=== PATIENT | male | born 1940 | race Caucasian/White ===

== ENCOUNTER 2017-11-19 09:36 | Inpatient (IN) | payer OTHER ==
[2017-11-19] MEDS ORDERED: morphine CARPU-JECT 2 MG/1 ML DISP.SYRIN IVPUSH ONE (09:42)
[2017-11-19] MEDS ORDERED: SODIUM CHLORIDE 1,000 ML IV STA (09:42)
[2017-11-19] MEDS ORDERED: ONDANSETRON 4 MG/2 ML VIAL IVPB ONE (09:44)
--- NOTE | 2017-11-19 09:52 | PDOC ---
History of Present Illness - History of Present Illness Initial Comments: 11/19/17 10:14 The patient is a 77 year old male with a significant PMH of s/p appendectomy, lower extremity osteomyelitis s/p multiple resections, gout, HLD and BPH who was brought in to the emergency department by Dr. Griffin with constipation, nausea, and right sided abdominal pain that began overnight. The patient describes the right mid abdominal pain as constant and radiating to the lower back. The patient denies any urinary complaints. The patient states he had an appendectomy in childhood and denies any history of kidney stones. The patient denies chest pain, shortness of breath, headache and dizziness. Denies fever, chills, vomit, and diarrhea. Denies dysuria, frequency, urgency and hematuria. Allergies: Penicillins, Sulfa Past surgical history: appendectomy Social history: No reported alcohol, drug, or cigarette use. PCP: Dr. Griffin <Yane Corral - Last Filed: 11/19/17 10:15> - General History Source: Patient Exam Limitations: No Limitations <Leonides Hemphill - Last Filed: 11/19/17 13:30> - General Stated Complaint: ABDOMINAL PAIN Time Seen by Provider: 11/19/17 09:41 Past History <Yane Corral - Last Filed: 11/19/17 10:15> <Leonides Hemphill - Last Filed: 11/19/17 13:30> - Past Medical History Allergies/Adverse Reactions: Allergies Allergy/AdvReac Type Severity Reaction Status Date / Time doxycycline Allergy Verified 11/19/17 10:11 Penicillins Allergy Verified 11/19/17 09:55 Sulfa (Sulfonamide Allergy Verified 11/19/17 09:55 Antibiotics) Home Medications: Ambulatory Orders Allopurinol [Zyloprim -] 100 mg PO DAILY 11/19/17 Gabapentin [Neurontin] 300 mg PO HS 11/19/17 Rosuvastatin Calcium [Crestor] 10 mg PO HS 11/19/17 Tamsulosin HCl [Flomax -] 0.4 mg PO HS 11/19/17 Review of Systems - Review of Systems Able to Perform ROS?: Yes Comments:: 11/19/17 10:17 GENERAL/CONSTITUTIONAL: No fever or chills. No weakness. HEAD, EYES, EARS, NOSE AND THROAT: No change in vision. No ear pain or discharge. No sore throat. CARDIOVASCULAR: No chest pain or shortness of breath. RESPIRATORY: No cough, wheezing, or hemoptysis. GASTROINTESTINAL: (+) Nausea. (+) Constipation. No vomiting or diarrhea. GENITOURINARY: No dysuria, frequency, or change in urination. MUSCULOSKELETAL: No joint or muscle swelling or pain. No neck or back pain. SKIN: No rash NEUROLOGIC: No headache, vertigo, loss of consciousness, or change in strength/ sensation. ENDOCRINE: No increased thirst. No abnormal weight change. HEMATOLOGIC/LYMPHATIC: No anemia, easy bleeding, or history of blood clots. ALLERGIC/IMMUNOLOGIC: No hives or skin allergy. <Yane Corral - Last Filed: 11/19/17 10:15> *Physical Exam - Vital Signs Last Vital Signs Temp Pulse Resp BP Pulse Ox 99.0 F 65 18 147/80 98 11/19/17 09:55 11/19/17 09:55 11/19/17 09:55 11/19/17 09:55 11/19/17 09:55 - Physical Exam Comments: 11/19/17 10:18 GENERAL: Awake, alert, and fully oriented, in no acute distress HEAD: No signs of trauma EYES: PERRLA, EOMI, sclera anicteric, conjunctiva clear ENT: Auricles normal inspection, hearing grossly normal, nares patent, oropharynx clear without exudates. Moist mucosa NECK: Normal ROM, supple, no lymphadenopathy, JVD, or masses LUNGS: Breath sounds equal, clear to auscultation bilaterally. No wheezes, and no crackles HEART: Regular rate and rhythm, normal S1 and S2, no murmurs, rubs or gallops ABDOMEN: (+) Right mid abdomen tender to palpation. Soft, normoactive bowel sounds. No guarding, no rebound. No masses EXTREMITIES: Normal range of motion, no edema. No clubbing or cyanosis. No cords, erythema, or tenderness NEUROLOGICAL: Cranial nerves II through XII grossly intact. Normal speech, normal gait SKIN: Warm, Dry, normal turgor, no rashes or lesions noted. <Yane Corral - Last Filed: 11/19/17 10:15> Heart Score/ECG Review #1 ECG reviewed & interpreted by me at: 10:00 11/19/17 10:07 NSR 57, no std/[place], normal axis, normal intervals, QTC 393 msec <Leonides Hemphill - Last Filed: 11/19/17 13:30> ED Treatment Course - Medications Given in the ED: ED Medications Discontinued Medications Generic Name Dose Route Start Last Admin Trade Name Andre PRN Reason Stop Dose Admin Morphine Sulfate 2 mg 11/19/17 09:42 11/19/17 10:10 Morphine Injection - IVPUSH 11/19/17 09:43 2 mg ONCE ONE Administration Ondansetron HCl 4 mg 11/19/17 09:44 11/19/17 10:11 Zofran Injection IVPB 11/19/17 09:45 4 mg ONCE ONE Administration <Yane Corral - Last Filed: 11/19/17 10:15> - LABORATORY CBC & Chemistry Diagram: 11/19/17 10:00 11/19/17 10:20 - RADIOLOGY Radiology Studies Ordered: Category Date Time Status ABDOMEN & PELVIS CT W/O CONTR [CT] Stat CT Scan 11/19/17 09:43 Ordered CHEST PA & LAT [RAD] Stat Radiology 11/19/17 09:42 Ordered <Leonides Hemphill - Last Filed: 11/19/17 13:30> Medical Decision Making - Medical Decision Making 11/19/17 10:08 A portion of this note was written by my scribe, under my supervision. 77 year old M c/ hx of HLD, gout, s/p appendectomy, BPH, lower extremity osteomylitis s/p multiple surgeries p/w abdominal pain since yesterday. Pt was brought into ED by Dr. Izzy Griffin. Noted that the patient had developed R sided abdominal pain, constipation, and nausea/vomiting. Denies fevers, chills. Denies dysuria. Reported that the pain was constant and was worsening so came into ED. Differential includes colitis, diverticulitis, gastroenteritis, constipation, bowel obstruction, cystitis, pyelonephritis, biliary colic. Labs, UA, CT scan of abdomen and pelvis (pt preference for no IV contrast given hx of multiple drug allergies). Pain control, IVF, and reassess. 11/19/17 13:27 CBC, BMP 11/19/17 10:00 11/19/17 10:20 CMP Sodium 139 mmol/L (136-145) 11/19/17 10:20 Potassium 4.6 mmol/L (3.5-5.1) 11/19/17 10:20 Chloride 106 mmol/L (98-107) 11/19/17 10:20 Carbon Dioxide 22 mmol/L (21-32) 11/19/17 10:20 Anion Gap 11 (8-16) 11/19/17 10:20 BUN 25 mg/dL (7-18) H 11/19/17 10:20 Creatinine 1.7 mg/dL (0.7-1.3) H D 11/19/17 10:20 Creat Clearance w eGFR 39.18 (>60) 11/19/17 10:20 Random Glucose 123 mg/dL (74-106) H 11/19/17 10:20 Calcium 9.3 mg/dL (8.5-10.1) 11/19/17 10:20 Phosphorus 3.4 mg/dL (2.5-4.9) 11/19/17 10:20 Magnesium 2.2 mg/dL (1.8-2.4) 11/19/17 10:20 Total Bilirubin 0.6 mg/dL (0.2-1.0) D 11/19/17 10:20 AST 15 U/L (15-37) 11/19/17 10:20 ALT 37 U/L (12-78) D 11/19/17 10:20 Alkaline Phosphatase 69 U/L (45-117) D 11/19/17 10:20 Creatine Kinase 80 IU/L (39-308) 11/19/17 10:20 Troponin I < 0.02 ng/ml (0.00-0.05) 11/19/17 10:20 Total Protein 6.9 g/dl (6.4-8.2) 11/19/17 10:20 Albumin 3.9 g/dl (3.4-5.0) 11/19/17 10:20 Lipase 86 U/L (73-393) 11/19/17 10:20 Urine Test Results Urine Color Straw 11/19/17 11:51 Urine Appearance Clear 11/19/17 11:51 Urine pH 5.0 (5.0-8.0) 11/19/17 11:51 Ur Specific [place] 1.010 (1.001-1.035) 11/19/17 11:51 Urine Protein Negative (NEGATIVE) 11/19/17 11:51 Urine Glucose (UA) Negative (NEGATIVE) 11/19/17 11:51 Urine Ketones Negative (NEGATIVE) 11/19/17 11:51 Urine Blood 2+ (NEGATIVE) H 11/19/17 11:51 Urine Nitrite Negative (NEGATIVE) 11/19/17 11:51 Urine Bilirubin Negative (NEGATIVE) 11/19/17 11:51 Ur Leukocyte Esterase Negative (NEGATIVE) 11/19/17 11:51 Ur Epithelial Cells Rare /HPF (FEW) 11/19/17 11:51 Urine Mucus Rare 11/19/17 11:51 CT scan shows 5 mm kidney stone R side. However, Cr is elevated. Will admit patient. Case discussed with Dr. Izzy Griffin who accepts patient to med/surg admission. Requests Dr. Chapman for consultation (uro) Case discussed in detail with admitting physician including history, physical exam and ancillary studies. Admitting physician has assumed care for the patient, will follow all pending diagnostics and will complete the evaluation and treatment. 11/19/17 13:[address] Hay. He will see patient. Requests IV antibiotics, flomax. <Leonides Hemphill - Last Filed: 11/19/17 13:30> *DC/Admit/Observation/Transfer - Attestations Scribe Attestion: 11/19/17 10:18 Documentation prepared by Yane Corral, acting as medical malpractice paralegal for Leonides Hemphill MD. <Yane Corral - Last Filed: 11/19/17 10:15> - Discharge Dispostion Admit: Yes <Leonides Hemphill - Last Filed: 11/19/17 13:30> Diagnosis at time of Disposition: Kidney stone, Elevated serum creatinine - Discharge Dispostion Condition at time of disposition: Stable - Referrals Referrals: Teofilo Griffin MD [Primary Care Provider] -
[2017-11-19] MEDS ORDERED: MORPHINE SULFATE 10 MG/1 ML *VIAL ONE (10:01)
[2017-11-19] MEDS ORDERED: ONDANSETRON 4 MG/2 ML VIAL ONE (10:02)
[2017-11-19 10:41] LABS: BASO % 0.2 % (0-2.0); EOS % 0.2 % (0-4.5); HEMATOCRIT 43.6 % (35.4-49); HEMOGLOBIN 14.2 GM/dL (11.7-16.9); LYMPH % 12.8 % (8-40); MCH 31.7 pg (25.7-33.7); MCHC 32.7 g/dl (32.0-35.9); MEAN PLT VOLUME 9.5 fl (7.5-11.1); MONO % 6.5 % (3.8-10.2); NEUT % 80.3 % (42.8-82.8); PLATELET COUNT 102 K/MM3 (134-434); RBC 4.49 M/mm3 (4.00-5.60); RDW 14.8 % (11.9-15.9); WHITE BLOOD COUNT 8.3 K/mm3 (4.0-10.0)
[2017-11-19 11:05] LABS: ALBUMIN 3.9 g/dl (3.4-5.0); ANION GAP 11 (8-16); BILIRUBIN,TOTAL 0.6 mg/dL (0.2-1.0); BLOOD UREA NITROGEN 25 mg/dL (7-18); CALCIUM 9.3 mg/dL (8.5-10.1); CHLORIDE 106 mmol/L (98-107); CO2 22 mmol/L (21-32); CREATININE 1.7 mg/dL (0.7-1.3); GLUCOSE,RANDOM 123 mg/dL (74-106); LIPASE 86 U/L (73-393); MAGNESIUM 2.2 mg/dL (1.8-2.4); PHOSPHOROUS 3.4 mg/dL (2.5-4.9); POTASSIUM 4.6 mmol/L (3.5-5.1); SGOT/AST 15 U/L (15-37); SGPT/ALT 37 U/L (12-78); SODIUM 139 mmol/L (136-145); TOT PROT 6.9 g/dl (6.4-8.2)
[2017-11-19 11:07] LABS: ALK PHOS 69 U/L (45-117)
[2017-11-19 12:26] LABS: URINE APPEARANCE CLEAR; URINE BILIRUBIN NEGATIVE (NEGATIVE); URINE BLOOD 2+ (NEGATIVE); URINE COLOR STRAW; URINE GLUCOSE (UA) NEGATIVE (NEGATIVE); URINE KETONE NEGATIVE (NEGATIVE); URINE LEUK ESTERASE NEGATIVE (NEGATIVE); URINE NITRITE NEGATIVE (NEGATIVE); URINE PROTEIN NEGATIVE (NEGATIVE); URINE UROBILINOGEN NEGATIVE mg/dL (0.2-1.0)
[2017-11-19 12:56] LABS: EPI CELLS RARE /HPF (FEW); URINE MUCUS RARE
[2017-11-19] MEDS ORDERED: TAMSULOSIN HCL 0.4 MG CAP.ER.24H (FP) PO ONE (13:27)
[2017-11-19] MEDS ORDERED: SODIUM CHLORIDE 1,000 ML IV SCH (13:30)
[2017-11-19] MEDS ORDERED: TAMSULOSIN HCL 0.4 MG CAP.ER.24H (FP) ONE (13:30)
[2017-11-19] MEDS ORDERED: ONDANSETRON 4 MG/2 ML VIAL IVPB PRN (13:47)
[2017-11-19] MEDS ORDERED: morphine CARPU-JECT 2 MG/1 ML DISP.SYRIN IVPB PRN (13:47)
--- NOTE | 2017-11-19 13:56 | HP ---
Admitting History and Physical - Primary Care Physician PCP: Izzy Griffin S - Admission Chief Complaint: R abdominal pain History of Present Illness: The patient is a 77 year old male with a significant PMH of s/p appendectomy, L lower extremity osteomyelitis s/p multiple resections in childhood, gout, HLD and BPH who was brought in to the emergency department with constipation, nausea, and right sided abdominal pain that began overnight. The patient describes the right mid abdominal pain as constant and radiating to the lower back. The patient denies any urinary complaints. The patient states he had an appendectomy in childhood and denies any history of kidney stones. History Source: Patient Limitations to Obtaining History: No Limitations - Past Medical History Cardiovascular: Yes: Hyperlipdemia Renal/: Yes: BPH Musculoskeletal: Yes: Chronic low back pain, Osteoarthritis - Smoking History Smoking history: Never smoked Have you smoked in the past 12 months: No - Alcohol/Substance Use Hx Alcohol Use: No History of Substance Use: reports: None - Social History Usual Living Arrangement: Yes: With Spouse ADL: Independent History of Recent Travel: No Home Medications - Allergies Allergies/Adverse Reactions: Allergies Allergy/AdvReac Type Severity Reaction Status Date / Time doxycycline Allergy Verified 11/19/17 10:11 Penicillins Allergy Verified 11/19/17 09:55 Sulfa (Sulfonamide Allergy Verified 11/19/17 09:55 Antibiotics) - Home Medications Home Medications: Ambulatory Orders Allopurinol [Zyloprim -] 100 mg PO DAILY 11/19/17 Gabapentin [Neurontin] 300 mg PO HS 11/19/17 Rosuvastatin Calcium [Crestor] 10 mg PO HS 11/19/17 Tamsulosin HCl [Flomax -] 0.4 mg PO HS 11/19/17 Acetaminophen [Tylenol .Regular Strength -] 650 mg PO Q6H PRN tablet 11/20/17 levoFLOXacin [Levaquin -] 250 mg PO DAILY #14 tablet 11/20/17 Family Disease History - Family Disease History Family History: Unremarkable Review of Systems - Review of Systems Constitutional: denies: Chills, Fever, Lethargy Eyes: denies: Blurred Vision, Double Vision HENT: denies: Ear Pain, Epistaxis Neck: denies: Stiffness, Tenderness Cardiovascular: denies: Chest Pain, Palpitations, Shortness of Breath Respiratory: denies: Cough, SOB Gastrointestinal: reports: Abdominal Pain, Bloating, Constipation, Nausea. denies: Diarrhea, Rectal Bleeding, Vomiting, Vomiting Blood Genitourinary: reports: Dysuria, Flank Pain, Frequency. denies: Hematuria, Incontinence Musculoskeletal: reports: Back Pain (chronic). denies: Joint Swelling Integumentary: denies: Eczema, Wound Neurological: denies: Change in LOC, Confusion, Dizziness, Headache, Pre- Existing Deficit, Seizure, Syncope, Unsteady Gait Endocrine: denies: Excessive Sweating, Flushing Hematology/Lymphatic: denies: Easily Bruised, Excessive Bleeding Psychiatric: denies: Altered Sleep Pattern, Anxiety, Depression Physical Examination Vital Signs: Vital Signs Temperature 99.0 F 11/19/17 09:55 Pulse Rate 65 11/19/17 09:55 Respiratory Rate 18 11/19/17 09:55 Blood Pressure 147/80 11/19/17 09:55 O2 Sat by Pulse Oximetry (%) 98 11/19/17 09:55 Constitutional: Yes: No Distress, Calm Eyes: Yes: Conjunctiva Clear HENT: Yes: Atraumatic Neck: Yes: Supple Cardiovascular: Yes: Regular Rate and Rhythm Respiratory: Yes: CTA Bilaterally Gastrointestinal: Yes: Soft. No: Distention, Tenderness Renal/: No: CVA Tenderness - Left, CVA Tenderness - Right, Hematuria Musculoskeletal: Yes: Other (LLE shorter). No: Joint Stiffness, Joint Swelling Extremities: No: Calf Tenderness, Cold, Cool, Cyanosis Edema: No Peripheral Pulses WNL: Yes Integumentary: No: Rash, Venous Stasis Changes Neurological: Yes: WNL, Alert, Oriented ...Motor Strength: WNL Psychiatric: Yes: WNL, Alert, Oriented. No: Agitated, Suicidal Ideation Labs: CBC, BMP 11/19/17 10:00 11/19/17 10:20 Imaging - Results Chest X-ray: Report Reviewed Cat Scan: Report Reviewed Other: Report Reviewed Assessment/Plan The patient is a 77 year old male with a significant PMH of s/p appendectomy, lower extremity osteomyelitis s/p multiple resections, gout, HLD and BPH who was brought in to the emergency department with constipation, nausea, and right sided abdominal pain that began overnight. CT scan c/w R UVJ 5 mm stone and mild R sided hydronephrosis and ARF (creat 1.7 from NL before) d/w admit IVF IV ATB f/u in am if does not pass stone might need cystoscopy d/w pt and staff
[2017-11-19] MEDS: SODIUM CHLORIDE 1,000 ML IV SCH (14:12)
--- NOTE | 2017-11-19 15:41 | CON.GU ---
Consult Consult Specialty:: Referred by:: Elias Reason for Consultation:: ureteral stone - History of Present Illness Chief Complaint: ureteral stone History of Present Illness: 77 year old male with his first kidney stone. He has a 5mm right UVJ stone with mild hydro. No fevers. He is feeling better since arriving to the ER. - History Source History Provided By: Patient Limitations to Obtaining History: No Limitations - Past Medical History Renal/: No: Renal Failure, Renal Inusuff, BPH, Cancer, Hematuria, Hemodialysis , Neurogenic Bladder, Renal Calculi, UTI, Other - Alcohol/Substance Use Hx Alcohol Use: No - Smoking History Smoking history: Never smoked Have you smoked in the past 12 months: No Home Medications - Allergies Allergies/Adverse Reactions: Allergies Allergy/AdvReac Type Severity Reaction Status Date / Time doxycycline Allergy Verified 11/19/17 10:11 Penicillins Allergy Verified 11/19/17 09:55 Sulfa (Sulfonamide Allergy Verified 11/19/17 09:55 Antibiotics) - Home Medications Home Medications: Ambulatory Orders Allopurinol [Zyloprim -] 100 mg PO DAILY 11/19/17 Gabapentin [Neurontin] 300 mg PO HS 11/19/17 Rosuvastatin Calcium [Crestor] 10 mg PO HS 11/19/17 Tamsulosin HCl [Flomax -] 0.4 mg PO HS 11/19/17 Review of Systems - Review of Systems Constitutional: denies: Fever Genitourinary: reports: Flank Pain, Frequency, Pain Physical Exam- Vital Signs: Vital Signs Temperature 97.9 F 11/19/17 14:32 Pulse Rate 69 11/19/17 14:32 Respiratory Rate 18 11/19/17 14:32 Blood Pressure 131/77 11/19/17 14:32 O2 Sat by Pulse Oximetry (%) 98 11/19/17 14:32 Constitutional: Yes: Well Nourished, No Distress, Calm Gastrointestinal: Yes: Soft Renal/: No: Bladder Distention, CVA Tenderness - Left, CVA Tenderness - Right , [place] Present, Hematuria Labs: CBC, BMP 11/19/17 10:00 11/19/17 10:20 Imaging - Results Cat Scan: Report Reviewed Problem List - Problems (1) Calculus of distal right ureter Assessment/Plan: no sepsis. stone with high likelihood of self passage. medical expulsive therapy. flomax, pain meds., antibiotcs, hydration. Will observe. Code(s): N20.1 - CALCULUS OF URETER
[2017-11-19 16:23] VITALS: BMI 27.3
[2017-11-19] MEDS ORDERED: ACETAMINOPHEN 325 MG TABLET (FP) PO PRN (20:57)
[2017-11-19] MEDS ORDERED: traMADol HCL 50 MG TABLET PO PRN (20:57)
[2017-11-19] MEDS ORDERED: TAMSULOSIN HCL 0.4 MG CAP.ER.24H (FP) PO SCH (22:00)
[2017-11-19] MEDS: GABAPENTIN 300 MG CAPSULE (FP) PO SCH (22:23)
[2017-11-19] MEDS: ROSUVASTATIN CA 10 MG TABLET (FP) PO SCH (22:25)
--- NOTE | 2017-11-20 07:13 | PN ---
Progress Note, Physician Chief Complaint: feels better after IVF IV ATB and prn morphine streams the urine but did not see any stone creat worse today 2.1 - Current Medication List Current Medications: Active Medications Acetaminophen (Tylenol -) 650 mg PO Q6H PRN PRN Reason: PAIN LEVEL 1-5 Allopurinol (Zyloprim -) 100 mg PO DAILY [facility] Gabapentin (Neurontin -) 300 mg PO [facility] Last Admin: 11/19/17 22:23 Dose: 300 mg Levofloxacin (Levaquin 250 Mg Premixed Ivpb -) 250 mg in 50 mls @ 50 mls/hr IVPB DAILY [facility] Last Admin: 11/19/17 14:12 Dose: Not Given Sodium Chloride (Normal Saline -) 1,000 mls @ 100 mls/hr IV ASDIR [facility] Last Admin: 11/19/17 14:12 Dose: 100 mls/hr Morphine Sulfate (Morphine Injection -) 2 mg IVPB Q6H PRN PRN Reason: PAIN LEVEL 7 - 10 Ondansetron HCl (Zofran Injection) 8 mg IVPB Q8H PRN PRN Reason: NAUSEA AND/OR VOMITING Rosuvastatin Calcium (Crestor -) 10 mg PO [facility] Last Admin: 11/19/17 22:25 Dose: 10 mg Tamsulosin HCl (Flomax -) 0.4 mg PO [facility] Last Admin: 11/19/17 22:22 Dose: 0.4 mg Tramadol HCl (Ultram -) 50 mg PO Q8H PRN PRN Reason: PAIN LEVEL 6-10 - Objective Vital Signs: Vital Signs Temperature 99.4 F 11/20/17 06:00 Pulse Rate 85 11/20/17 06:00 Respiratory Rate 18 11/20/17 06:00 Blood Pressure 133/85 11/20/17 06:00 O2 Sat by Pulse Oximetry (%) 98 11/19/17 21:00 Constitutional: Yes: No Distress, Calm Eyes: Yes: Conjunctiva Clear HENT: Yes: Atraumatic Neck: Yes: Supple Cardiovascular: Yes: Regular Rate and Rhythm Respiratory: Yes: CTA Bilaterally Gastrointestinal: Yes: Soft. No: Distention, Tenderness Genitourinary: No: CVA Tenderness - Left, CVA Tenderness - Right Musculoskeletal: No: Joint Stiffness, Joint Swelling Extremities: No: Cold, Cool Edema: No Integumentary: No: Rash, Venous Stasis Changes Neurological: Yes: WNL, Alert, Oriented ...Motor Strength: WNL Psychiatric: Yes: WNL, Alert, Oriented. No: Agitated, Suicidal Ideation Labs: CBC, BMP 11/19/17 10:20 - ....Imaging Other: Report Reviewed Assessment/Plan The patient is a 77 year old male with a significant PMH of s/p appendectomy, lower extremity osteomyelitis s/p multiple resections, gout, HLD and BPH who was brought in to the emergency department with constipation, nausea, and right sided abdominal pain that began overnight. CT scan c/w R UVJ 5 mm stone and mild R sided hydronephrosis and ARF (creat 1.7 now 2.1 from NL before) IVF IV ATB renal eval check renal US, KUB to see stone position d/w pt and staff
[2017-11-20 07:59] LABS: BASO % 0.2 % (0-2.0); HEMATOCRIT 38.5 % (35.4-49); HEMOGLOBIN 12.6 GM/dL (11.7-16.9); LYMPH % 18.6 % (8-40); MCH 31.9 pg (25.7-33.7); MCHC 32.6 g/dl (32.0-35.9); MEAN CELL VOLUME 97.6 fl (80-96); MEAN PLT VOLUME 9.7 fl (7.5-11.1); MONO % 12.9 % (3.8-10.2); NEUT % 67.3 % (42.8-82.8); PLATELET COUNT 84 K/MM3 (134-434); RBC 3.94 M/mm3 (4.00-5.60); WHITE BLOOD COUNT 7.8 K/mm3 (4.0-10.0)
[2017-11-20] MEDS ORDERED: CYANOCOBALAMIN (VITAMIN B-12) 1000 MCG/1 ML VIAL IM ONE (08:15)
[2017-11-20 09:14] LABS: ALBUMIN 2.9 g/dl (3.4-5.0); ANION GAP 10 (8-16); BILIRUBIN,TOTAL 0.4 mg/dL (0.2-1.0); BLOOD UREA NITROGEN 23 mg/dL (7-18); CALCIUM 8.2 mg/dL (8.5-10.1); CHLORIDE 111 mmol/L (98-107); CO2 20 mmol/L (21-32); CREATININE 2.1 mg/dL (0.7-1.3); GLUCOSE,RANDOM 100 mg/dL (74-106); POTASSIUM 4.5 mmol/L (3.5-5.1); SGOT/AST 11 U/L (15-37); SGPT/ALT 26 U/L (12-78); SODIUM 141 mmol/L (136-145); TOT PROT 5.5 g/dl (6.4-8.2)
[2017-11-20 09:15] LABS: ALK PHOS 57 U/L (45-117)
[2017-11-20 09:43] LABS: AMYLASE 70 U/L (25-115); LIPASE 71 U/L (73-393)
[2017-11-20] MEDS: SODIUM CHLORIDE 1,000 ML IV SCH ×2 (10:03→17:41)
[2017-11-20] MEDS: ALLOPURINOL 100 MG TABLET (FP) PO SCH (10:07)
[2017-11-20 10:33] LABS: INR 1.03 (0.82-1.09); PROTHROMBIN TIME (PATIENT) 11.6 SEC (9.98-11.88)
[2017-11-20 10:36] LABS: ACTIVATED PTT 26.7 SECONDS (26.9-34.4)
[2017-11-20 10:38] LABS: ANION GAP 8 (8-16); BLOOD UREA NITROGEN 21 mg/dL (7-18); CALCIUM 8.8 mg/dL (8.5-10.1); CHLORIDE 109 mmol/L (98-107); CO2 25 mmol/L (21-32); GLUCOSE,RANDOM 95 mg/dL (74-106); POTASSIUM 4.9 mmol/L (3.5-5.1); SODIUM 142 mmol/L (136-145)
[2017-11-20 10:40] LABS: CREATININE 1.8 mg/dL (0.7-1.3)
--- NOTE | 2017-11-20 11:27 | CONSULT ---
Consult - text type - Consultation Consultation Note: Renal consult for NIYA This is a 77 year old gentleman with PMhx of HLD, Osteomylitis, BPH who presented with Abd pain and found to have a UVJ stone and right sided hydronephrosis with NIYA with peak Cr of 2.1. Has no pain now. Making urine but has slow voiding. No N/V/D. No rash. NO NSAID exposure. No contrast exposure. PMHx; as above Allergies: Doxycycline, PCN, Sulfa Family Hx: NC Social Hx: No T/A/D Home Medications Medication Instructions Recorded Allopurinol [Zyloprim -] 100 mg PO DAILY 11/19/17 Gabapentin [Neurontin] 300 mg PO HS 11/19/17 Rosuvastatin Calcium [Crestor] 10 mg PO HS 11/19/17 Tamsulosin HCl [Flomax -] 0.4 mg PO HS 11/19/17 Acetaminophen [Tylenol .Regular 650 mg PO Q6H PRN tablet 11/20/17 Strength -] levoFLOXacin [Levaquin -] 250 mg PO DAILY #14 tablet 11/20/17 Vital Signs Temperature 98.6 F 11/20/17 09:57 Pulse Rate 58 L 11/20/17 09:57 Respiratory Rate 18 11/20/17 09:57 Blood Pressure 133/70 11/20/17 09:57 O2 Sat by Pulse Oximetry (%) 98 11/19/17 21:00 Intake & Output 11/17/17 11/18/17 11/19/17 11/20/17 23:59 23:59 23:59 23:59 Intake Total 650 Balance 650 Weight 79.288 kg NAD awake and alert RRR, no M/R CTA soft NT/ND no CVA tenderness no bladder distension No LE edema, clubbing or cyanosis CBC, BMP 11/20/17 06:40 11/20/17 10:00 Current Medications Acetaminophen (Tylenol -) 650 mg PO Q6H PRN PRN Reason: PAIN LEVEL 1-5 Allopurinol (Zyloprim -) 100 mg PO DAILY [facility] Last Admin: 11/20/17 10:07 Dose: 100 mg Gabapentin (Neurontin -) 300 mg PO HS [facility] Last Admin: 11/19/17 22:23 Dose: 300 mg Levofloxacin (Levaquin 250 Mg Premixed Ivpb -) 250 mg in 50 mls @ 50 mls/hr IVPB DAILY [facility] Last Admin: 11/20/17 10:02 Dose: 50 mls/hr Sodium Chloride (Normal Saline -) 1,000 mls @ 100 mls/hr IV ASDIR [facility] Last Admin: 11/20/17 10:03 Dose: 100 mls/hr Morphine Sulfate (Morphine Injection -) 2 mg IVPB Q6H PRN PRN Reason: PAIN LEVEL 7 - 10 Ondansetron HCl (Zofran Injection) 8 mg IVPB Q8H PRN PRN Reason: NAUSEA AND/OR VOMITING Rosuvastatin Calcium (Crestor -) 10 mg PO HS [facility] Last Admin: 11/19/17 22:25 Dose: 10 mg Tamsulosin HCl (Flomax -) 0.4 mg PO [facility] Last Admin: 11/19/17 22:22 Dose: 0.4 mg Tramadol HCl (Ultram -) 50 mg PO Q8H PRN PRN Reason: PAIN LEVEL 6-10 77 year old gentleman with PMhx of HLD, Osteomylitis, BPH who presented with Abd pain and found to have a UVJ stone and right sided hydronephrosis with NIYA with peak Cr of 2.1. #Acute Kidney Injury in setting of unilateral obstruction injury likely caused by multiple factors (obstruction +/- BPH) vs. AIN check Urine studies including urine eiosinophils repeat Us being performed now Cr improved form 2.1 to 1.8 this am contineu gentle IVF hydration increase flomax to 0.8 urology follow up avoid nsaids trend BMP Dose all meds for CrCl less then 30 Thank you Will follow Ben Horvath DO
[2017-11-20] MEDS ORDERED: TAMSULOSIN HCL 0.4 MG CAP.ER.24H (FP) PO SCH (11:31)
[2017-11-20] MEDS: PNEUMOC 13-VAL CONJ-DIP CRM/PF 0.5 ML DISP.SYRIN IM ONE ×2 (12:58→17:40)
--- NOTE | 2017-11-20 12:58 | PN ---
Ayla Note Chief Complaint: Right ureteral calculus - Objective Vital Signs: Vital Signs Temperature 98.6 F 11/20/17 09:57 Pulse Rate 58 L 11/20/17 09:57 Respiratory Rate 18 11/20/17 09:57 Blood Pressure 133/70 11/20/17 09:57 O2 Sat by Pulse Oximetry (%) 98 11/20/17 09:00 Labs/Additional Data: CBC, BMP 11/20/17 06:40 11/20/17 10:00 INR, PTT INR 1.03 (0.82-1.09) 11/20/17 10:00 Imaging - Results Cat Scan: Report Reviewed Ultrasound: Report Reviewed Assessment/Plan Right 5 mm UVJ stone likely passed TODD today no hydro Will order KUB May D/C and follow as opd
[2017-11-20 18:48] LABS: ANION GAP 4 (8-16); BLOOD UREA NITROGEN 24 mg/dL (7-18); CHLORIDE 109 mmol/L (98-107); CO2 28 mmol/L (21-32); CREATININE 1.8 mg/dL (0.7-1.3); GLUCOSE,RANDOM 77 mg/dL (74-106); POTASSIUM 4.4 mmol/L (3.5-5.1); SODIUM 141 mmol/L (136-145)
[2017-11-20] MEDS: ROSUVASTATIN CA 10 MG TABLET (FP) PO SCH (21:51)
[2017-11-20] MEDS: GABAPENTIN 300 MG CAPSULE (FP) PO SCH (21:53)
[2017-11-21 06:27] VITALS: TEMP 98
--- NOTE | 2017-11-21 07:33 | DS ---
Physical Examination Vital Signs: Vital Signs Temperature 98 F 11/21/17 06:00 Pulse Rate 62 11/21/17 06:00 Respiratory Rate 18 11/21/17 06:00 Blood Pressure 132/66 11/21/17 06:00 O2 Sat by Pulse Oximetry (%) 98 11/20/17 21:00 Findings/Remarks: feels well wants to go home did not see stone passing but no more pain and US and KUB negative creat 1.4 Constitutional: Yes: No Distress, Calm Eyes: Yes: Conjunctiva Clear HENT: Yes: Atraumatic Neck: Yes: Supple Cardiovascular: Yes: Regular Rate and Rhythm Respiratory: Yes: CTA Bilaterally Gastrointestinal: Yes: Soft. No: Distention, Tenderness Renal/: No: CVA Tenderness - Left, CVA Tenderness - Right Musculoskeletal: No: Joint Stiffness, Joint Swelling Extremities: No: Cold, Cool, Cyanosis Edema: No Integumentary: No: Rash, Venous Stasis Changes Neurological: Yes: WNL, Alert, Oriented ...Motor Strength: WNL Psychiatric: Yes: WNL, Alert, Oriented. No: Agitated, Suicidal Ideation Discharge Summary Reason For Visit: CALCULUS OF KIDNEY; SERUM CREATININE RAISED Current Active Problems Calculus of distal right ureter (Acute) Elevated serum creatinine (Acute) Kidney stone (Acute) Procedures: Principal: admitted with severe R flank pain and renal colic;. ARF , UVJ stone and R hydronephrosis Other Procedures: IVF, pain meds prn, IV ATB, flomaox po. seen by and renal; Hospital Course: improved with above; creat better, no pain, renal US and KUB negative; DC home and f/u as advised. Condition: Stable - Instructions Diet, Activity, Other Instructions: f/u PCP, and labs in 1-2 weeks Referrals: Teofilo Griffin MD [Primary Care Provider] - Sukumar Chapman MD., [Staff Physician] - Disposition: HOME - Home Medications Comprehensive Discharge Medication List: Ambulatory Orders Allopurinol [Zyloprim -] 100 mg PO DAILY 11/19/17 Gabapentin [Neurontin] 300 mg PO HS 11/19/17 Rosuvastatin Calcium [Crestor] 10 mg PO HS 11/19/17 Tamsulosin HCl [Flomax -] 0.4 mg PO HS 11/19/17 Acetaminophen [Tylenol .Regular Strength -] 650 mg PO Q6H PRN tablet 11/20/17 levoFLOXacin [Levaquin -] 250 mg PO DAILY #14 tablet 11/20/17
[2017-11-21 07:50] LABS: BASO % 0.4 % (0-2.0); EOS % 2.6 % (0-4.5); HEMATOCRIT 39.3 % (35.4-49); HEMOGLOBIN 12.7 GM/dL (11.7-16.9); LYMPH % 25.1 % (8-40); MCH 31.8 pg (25.7-33.7); MCHC 32.5 g/dl (32.0-35.9); MEAN PLT VOLUME 9.9 fl (7.5-11.1); MONO % 11.2 % (3.8-10.2); NEUT % 60.7 % (42.8-82.8); PLATELET COUNT 85 K/MM3 (134-434); RBC 4.01 M/mm3 (4.00-5.60); WHITE BLOOD COUNT 6.3 K/mm3 (4.0-10.0)
[2017-11-21 08:16] LABS: ANION GAP 6 (8-16); BLOOD UREA NITROGEN 21 mg/dL (7-18); CALCIUM 8.2 mg/dL (8.5-10.1); CHLORIDE 109 mmol/L (98-107); CO2 26 mmol/L (21-32); CREATININE 1.4 mg/dL (0.7-1.3); GLUCOSE,RANDOM 90 mg/dL (74-106); POTASSIUM 4.4 mmol/L (3.5-5.1); SODIUM 141 mmol/L (136-145)
--- NOTE | 2017-11-21 08:58 | PN ---
Progress Note (short form) - Note Progress Note: Renal follow up for NIYA Pt seen and examined at the bedside no acute complaints no sob, chest pain, abd pain Vital Signs Temperature 98 F 11/21/17 06:00 Pulse Rate 62 11/21/17 06:00 Respiratory Rate 18 11/21/17 06:00 Blood Pressure 132/66 11/21/17 06:00 O2 Sat by Pulse Oximetry (%) 98 11/20/17 21:00 NAD RRR, no M/R CTA soft NT/ND No LE edema, clubbing or cyanosis CBC, BMP 11/21/17 06:00 11/21/17 06:00 Current Medications Acetaminophen (Tylenol -) 650 mg PO Q6H PRN PRN Reason: PAIN LEVEL 1-5 Allopurinol (Zyloprim -) 100 mg PO DAILY [facility] Last Admin: 11/20/17 10:07 Dose: 100 mg Cyanocobalamin (Vitamin B12 Injection -) 1,000 mcg IM ONCE ONE Stop: 11/21/17 09:01 Gabapentin (Neurontin -) 300 mg PO [facility] Last Admin: 11/20/17 21:53 Dose: 300 mg Levofloxacin (Levaquin 250 Mg Premixed Ivpb -) 250 mg in 50 mls @ 50 mls/hr IVPB DAILY [facility] Last Admin: 11/20/17 10:02 Dose: 50 mls/hr Sodium Chloride (Normal Saline -) 1,000 mls @ 100 mls/hr IV ASDIR [facility] Last Admin: 11/20/17 17:41 Dose: Not Given Morphine Sulfate (Morphine Injection -) 2 mg IVPB Q6H PRN PRN Reason: PAIN LEVEL 7 - 10 Ondansetron HCl (Zofran Injection) 8 mg IVPB Q8H PRN PRN Reason: NAUSEA AND/OR VOMITING Rosuvastatin Calcium (Crestor -) 10 mg PO [facility] Last Admin: 11/20/17 21:51 Dose: 10 mg Tamsulosin HCl (Flomax -) 0.8 mg PO [facility] Last Admin: 11/20/17 21:51 Dose: 0.8 mg 77 year old gentleman with PMhx of HLD, Osteomylitis, BPH who presented with Abd pain and found to have a UVJ stone and right sided hydronephrosis with NIYA with peak Cr of 2.1. #Acute Kidney Injury in setting of unilateral obstruction Renal function improved Us done yesterday showed resolution of hydronephrosis ok for discharge home on oral hydration goal is to keep urine output ~2L daily would avoid nsaids for now until renal function returns to baseline Thank you Ben Horvath DO
[2017-11-21] MEDS ORDERED: CYANOCOBALAMIN (VITAMIN B-12) 1000 MCG/1 ML VIAL IM ONE (09:00)
[2017-11-21 09:20] LABS: CHOLESTEROL 142 mg/dL (50-200); HDL CHOLESTEROL 56 mg/dL (40-60); LDL CHOLESTEROL (ONLY SJRH) 73 mg/dL (5-100); TRIGLYCERIDES 97 mg/dL (35-160)
[2017-11-21] MEDS: ALLOPURINOL 100 MG TABLET (FP) PO SCH (09:21)
[2017-11-21 09:29] VITALS: BP 124/81; PULSE 78
--- NOTE | 2017-11-23 11:48 | EKG ---
Test Reason : Blood Pressure : / mmHG Vent. Rate : 057 BPM Atrial Rate : 057 BPM P-R Int : 178 ms QRS Dur : 076 ms QT Int : 404 ms P-R-T Axes : 043 006 031 degrees QTc Int : 393 ms SINUS BRADYCARDIA OTHERWISE NORMAL ECG WHEN COMPARED WITH ECG OF 02-SEP-2017 11:17, NO SIGNIFICANT CHANGE WAS FOUND Confirmed by MD Fay Daniel ([id number]) on 11/23/2017 11:47:47 AM Referred By: Confirmed By:Hany Fay MD
== END 2017-11-21 10:20 | disposition home or self-care (01) | DRG 694 ==
LOC: JER 09:36 → JERBED 13:30 → J5S 15:42
PROVIDERS: ADMIT Internal Medicine; ATTEND Internal Medicine
DX: N13.2 Hydronephrosis with renal and ureteral calculous obstruction (principal); N17.9 Acute kidney failure, unspecified; M10.9 Gout, unspecified; E78.5 Hyperlipidemia, unspecified; N40.0 Benign prostatic hyperplasia without lower urinary tract symptoms; K59.00 Constipation, unspecified
CPT/HCPCS: 36415; 71046-TC-FY; 74018-TC-FY; 74176-TC; 76775-TC; 76856-TC; 80048; 80053; 80061; 81003; 81015; 82150; 82550; 82570; 82607; 82746; 82747; 83036; 83690; 83721; 83735; 84100; 84153; 84156; 84300; 84443; 84484; 85014; 85025; 85610; 85730; 86038; 86340; 87086; 87205; 90670; 93005; 93010; 99283-25

== ENCOUNTER 2025-04-02 07:49 | Inpatient (IN) | payer OTHER ==
[2025-04-02 08:41] LABS: BASOPHILS # 0.02 x10^3/uL (0.01-0.08); EOSINOPHIL % 1.2 % (0.8-7.0); EOSINOPHILS # 0.08 x10^3/uL (0.04-0.54); MEAN CELL VOLUME 102.5 fl (79.0-92.2); RDW 13.2 % (12.6-16.6)
[2025-04-02 08:43] LABS: ABSOLUTE IMMATURE GRANULOCYTES 0.05 x10^3/uL (0.0-0.031); IMMATURE PLATELET FRACTION # 4.30 x10^3/uL; MCHC 32.7 g/dl (32.3-36.5); MEAN PLT VOLUME 10.8 fl (9.4-12.4); MONOCYTE # 0.70 x10^3/uL (0.30-0.82); MONOCYTE % 10.5 % (5.3-12.2)
[2025-04-02 08:51] LABS: INR 1.01 (0.83-1.09); PROTHROMBIN TIME (PATIENT) 11.1 SEC (9.7-13.0)
[2025-04-02 08:54] LABS: ACTIVATED PTT 26.2 SECONDS (25.2-36.5)
[2025-04-02 09:12] LABS: CO2 24.0 mmol/L (21-32); GLUCOSE,RANDOM 104.0 mg/dL (74-106)
[2025-04-02 09:15] LABS: CREATININE 1.5 mg/dL (0.55-1.3)
[2025-04-02 09:16] LABS: SGOT/AST 16.0 U/L (15-37); SGPT/ALT 36.0 U/L (13-61)
[2025-04-02 09:17] LABS: TOT PROT 7.0 g/dl (6.4-8.2)
[2025-04-02 09:18] LABS: ALK PHOS 68.0 U/L (45-117)
[2025-04-02 09:56] LABS: ERYTHROCYTE SEDIMENTATION RATE 17 mm/hr (0-20)
[2025-04-02] MEDS ORDERED: CLOPIDOGREL BISULFATE 75 MG TABLET (FP) ONE (10:29)
[2025-04-02] MEDS ORDERED: ASPIRIN 81 MG CHEWABLE TABLETS ONE (10:30)
[2025-04-02] MEDS: ASPIRIN 81 MG CHEWABLE TABLETS PO SCH (10:36)
[2025-04-02] MEDS: SODIUM CHLORIDE 0.45% 1,000 ML IV SCH (10:36)
[2025-04-02] MEDS ORDERED: ACETAMINOPHEN 325 MG TABLET (FP) PO PRN (11:06)
[2025-04-02] MEDS ORDERED: ACETAMINOPHEN 1000 MG/100 ML BAG IVPB PRN (11:06)
[2025-04-02] MEDS: CLOPIDOGREL BISULFATE 75 MG TABLET (FP) PO SCH (11:23)
[2025-04-02] MEDS: amLODIPine BESYLATE 5 MG TABLET (FP) PO SCH (11:26)
[2025-04-02] MEDS ORDERED: VANCOMYCIN 1 GM PREMIX (F) 1 GM/200 ML BAG ONE (16:46)
[2025-04-02] MEDS: VANCOMYCIN/WATER FOR INJ (PEG) 1,000 MG/200 ML BAG IVPB SCH (16:56)
[2025-04-02] MEDS: TAMSULOSIN HCL 0.4 MG CAP PO SCH (21:16)
[2025-04-02] MEDS: GABAPENTIN 300 MG CAPSULE PO SCH (21:16)
[2025-04-02] MEDS: ROSUVASTATIN CA 10 MG TABLET PO SCH (21:17)
[2025-04-02] MEDS: CEFEPIME 1 GM in DEXTROSE 5%-WATER 100 ML IVPB SCH (21:17)
[2025-04-03 07:56] LABS: ABSOLUTE IMMATURE GRANULOCYTES 0.04 x10^3/uL (0.0-0.031); BASOPHILS # 0.02 x10^3/uL (0.01-0.08); EOSINOPHIL % 3.7 % (0.8-7.0); EOSINOPHILS # 0.20 x10^3/uL (0.04-0.54); MCHC 31.9 g/dl (32.3-36.5); MEAN CELL VOLUME 102.4 fl (79.0-92.2); MEAN PLT VOLUME 10.5 fl (9.4-12.4); MONOCYTE # 0.58 x10^3/uL (0.30-0.82); MONOCYTE % 10.6 % (5.3-12.2); RDW 13.2 % (12.6-16.6)
[2025-04-03 08:38] LABS: CO2 27.0 mmol/L (21-32); GLUCOSE,RANDOM 103.0 mg/dL (74-106)
[2025-04-03 08:41] LABS: CREATININE 1.5 mg/dL (0.55-1.3); SGPT/ALT 34.0 U/L (13-61)
[2025-04-03 08:42] LABS: SGOT/AST 17.0 U/L (15-37)
[2025-04-03 08:43] LABS: TOT PROT 6.2 g/dl (6.4-8.2)
[2025-04-03 08:44] LABS: ALK PHOS 57.0 U/L (45-117)
[2025-04-03] MEDS: ALLOPURINOL 100 MG TABLET (FP) PO SCH (09:25)
[2025-04-03] MEDS ORDERED: SENNOSIDES 8.6MG TABLET (FP) PO PRN ×2 (11:45→16:57)
[2025-04-03 12:22] LABS: LDL CHOLESTEROL (ONLY SJRH) 79.0 mg/dL (5-100)
[2025-04-03] MEDS ORDERED: LIDOCAINE HCL 1%, 10 MG/ML (20ML VIAL) ONE (13:59)
[2025-04-03] MEDS ORDERED: HEPARIN NA (PORCINE) 5,000 UNITS/ML 1ML VIAL ONE (13:59)
[2025-04-03] MEDS ORDERED: PROPOFOL 20 ML ONE (14:15)
[2025-04-03] MEDS ORDERED: MIDAZOLAM HCL 2 MG/2 ML SINGLE DOSE VIAL ONE ×2 (14:16→14:48)
[2025-04-03] MEDS ORDERED: SUCCINYLCHOLINE CHLORIDE 200 MG/10 ML SYRINGE ONE (14:20)
[2025-04-03] MEDS: LIDOCAINE HCL 1%, 10 MG/ML (20ML VIAL) NR ONE ×3 (15:11)
[2025-04-03] MEDS ORDERED: HEPARIN INFUSION - 25,000 UNITS/500 ML INFUS.BAG IVPB ONE (15:43)
[2025-04-03] MEDS ORDERED: ACETAMINOPHEN 325 MG TABLET (FP) PO PRN (16:57)
[2025-04-03 17:26] LABS: MEAN CELL VOLUME 102.6 fl (79.0-92.2)
[2025-04-03 17:28] LABS: IMMATURE PLATELET FRACTION # 4.30 x10^3/uL; MCHC 32.4 g/dl (32.3-36.5); MEAN PLT VOLUME 10.5 fl (9.4-12.4); RDW 13.2 % (12.6-16.6)
[2025-04-03] MEDS ORDERED: ONDANSETRON 4 MG/2 ML VIAL IVPUSH PRN (18:00)
[2025-04-03 18:41] LABS: CO2 24.0 mmol/L (21-32); CREATININE 1.4 mg/dL (0.55-1.3); GLUCOSE,RANDOM 92.0 mg/dL (74-106)
[2025-04-03] MEDS ORDERED: HEPARIN INFUSION - 25,000 UNITS/500 ML INFUS.BAG NR SCH (18:45)
[2025-04-03] MEDS: LACTATED RINGERS SOLUTION 1,000 ML IV SCH (20:00)
[2025-04-03] MEDS: HEPARIN INFUSION - 25,000 UNITS/500 ML INFUS.BAG NR SCH (20:40)
[2025-04-03] MEDS: MUPIROCIN 2% TOPICAL OINTMENT FOR DECOLONIZATION NS SCH (21:26)
[2025-04-03] MEDS: CHLORHEXIDINE GLUCONATE 4% CLEANSER FOR DECOLONIZATION TP SCH (21:27)
[2025-04-03] MEDS: DOCUSATE SODIUM 100 MG CAPSULE (FP) PO SCH (21:34)
[2025-04-03] MEDS: GABAPENTIN 300 MG CAPSULE PO SCH (21:34)
[2025-04-03] MEDS: CEFEPIME 1 GM in DEXTROSE 5%-WATER 100 ML IVPB SCH (21:34)
[2025-04-03] MEDS: ROSUVASTATIN CA 10 MG TABLET PO SCH (21:34)
[2025-04-03] MEDS: TAMSULOSIN HCL 0.4 MG CAP PO SCH (21:37)
[2025-04-03] MEDS ORDERED: DOCUSATE SODIUM 100 MG CAPSULE (FP) PO SCH (22:00)
[2025-04-03] MEDS: MELATONIN 5 MG TABLETS PO ONE (23:35)
[2025-04-04] MEDS: LIDOCAINE HCL 1%, 10 MG/ML (20ML VIAL) NR ONE
[2025-04-04 00:13] LABS: MEAN CELL VOLUME 101.6 fl (79.0-92.2); RDW 13.2 % (12.6-16.6)
[2025-04-04 00:14] LABS: IMMATURE PLATELET FRACTION # 4.20 x10^3/uL; MCHC 32.7 g/dl (32.3-36.5); MEAN PLT VOLUME 10.7 fl (9.4-12.4)
[2025-04-04 00:31] LABS: CO2 25.0 mmol/L (21-32); GLUCOSE,RANDOM 91.0 mg/dL (74-106)
[2025-04-04 00:35] LABS: CREATININE 1.3 mg/dL (0.55-1.3)
[2025-04-04 06:16] LABS: CO2 25.0 mmol/L (21-32); GLUCOSE,RANDOM 98.0 mg/dL (74-106)
[2025-04-04 06:17] LABS: CO2 25.0 mmol/L (21-32); GLUCOSE,RANDOM 100.0 mg/dL (74-106)
[2025-04-04 06:19] LABS: CREATININE 1.3 mg/dL (0.55-1.3); SGOT/AST 23.0 U/L (15-37); SGPT/ALT 36.0 U/L (13-61)
[2025-04-04 06:20] LABS: CREATININE 1.3 mg/dL (0.55-1.3)
[2025-04-04 06:21] LABS: TOT PROT 6.3 g/dl (6.4-8.2)
[2025-04-04 06:22] LABS: ALK PHOS 62.0 U/L (45-117)
[2025-04-04 06:40] LABS: MEAN CELL VOLUME 101.3 fl (79.0-92.2)
[2025-04-04 06:42] LABS: IMMATURE PLATELET FRACTION # 3.80 x10^3/uL; MCHC 32.3 g/dl (32.3-36.5); MEAN PLT VOLUME 11.2 fl (9.4-12.4); RDW 13.1 % (12.6-16.6)
[2025-04-04 06:43] LABS: ABSOLUTE IMMATURE GRANULOCYTES 0.06 x10^3/uL (0.0-0.031); BASOPHILS # 0.02 x10^3/uL (0.01-0.08); EOSINOPHIL % 1.4 % (0.8-7.0); EOSINOPHILS # 0.09 x10^3/uL (0.04-0.54); MCHC 32.9 g/dl (32.3-36.5); MEAN CELL VOLUME 101.1 fl (79.0-92.2); MEAN PLT VOLUME 11.1 fl (9.4-12.4); MONOCYTE # 0.52 x10^3/uL (0.30-0.82); MONOCYTE % 7.8 % (5.3-12.2); RDW 13.1 % (12.6-16.6)
[2025-04-04] MEDS: ALLOPURINOL 100 MG TABLET (FP) PO SCH (09:37)
[2025-04-04] MEDS: amLODIPine BESYLATE 5 MG TABLET (FP) PO SCH (09:37)
[2025-04-04] MEDS: ESCITALOPRAM OXALATE 10 MG TABLET PO ONE ×2 (12:00→20:21)
[2025-04-04] MEDS ORDERED: PNEUMOC 20-VAL CONJ-DIP CRM/PF 0.5 ML SYRINGE IM ONE (12:30)
[2025-04-04] MEDS: ACETAMINOPHEN 1000 MG/100 ML BAG IVPB PRN ×2 (12:35→23:54)
[2025-04-04] MEDS ORDERED: HEPARIN NA (PORCINE) 5,000 UNITS/ML 1ML VIAL ONE (14:25)
[2025-04-04] MEDS ORDERED: LIDOCAINE HCL 1%, 10 MG/ML (20ML VIAL) ONE (14:25)
[2025-04-04] MEDS ORDERED: MIDAZOLAM HCL 2 MG/2 ML SINGLE DOSE VIAL ONE (15:21)
[2025-04-04] MEDS ORDERED: PROPOFOL 20 ML ONE ×2 (16:02→16:46)
[2025-04-04] MEDS ORDERED: DEXAMETHASONE SOD PHOSPHATE 4 MG/1 ML VIAL ONE (16:11)
[2025-04-04] MEDS ORDERED: ONDANSETRON 4 MG/2 ML VIAL ONE (16:11)
[2025-04-04] MEDS: LIDOCAINE HCL 1%, 10 MG/ML (20ML VIAL) INF ONE (16:57)
[2025-04-04] MEDS ORDERED: HEPARIN NA (PORCINE) 5,000 UNITS/ML 1ML VIAL IVPUSH PRN ×2 (17:33)
[2025-04-04] MEDS: VANCOMYCIN/WATER FOR INJ (PEG) 1,000 MG/200 ML BAG IVPB SCH (18:22)
[2025-04-04] MEDS ORDERED: ONDANSETRON 4 MG/2 ML VIAL IVPUSH PRN (18:43)
[2025-04-04 19:01] LABS: MCHC 32.7 g/dl (32.3-36.5); MEAN CELL VOLUME 102.0 fl (79.0-92.2); MEAN PLT VOLUME 11.4 fl (9.4-12.4); RDW 13.1 % (12.6-16.6)
[2025-04-04] MEDS: LACTATED RINGERS SOLUTION 1,000 ML IV SCH (19:01)
[2025-04-04 19:04] LABS: CO2 27.0 mmol/L (21-32)
[2025-04-04 19:05] LABS: GLUCOSE,RANDOM 91.0 mg/dL (74-106)
[2025-04-04 19:08] LABS: CREATININE 1.4 mg/dL (0.55-1.3)
[2025-04-04] MEDS: HEPARIN INFUSION - 25,000 UNITS/500 ML INFUS.BAG IVPB SCH (19:58)
[2025-04-04] MEDS: MUPIROCIN 2% TOPICAL OINTMENT FOR DECOLONIZATION NS SCH (21:52)
[2025-04-04] MEDS: GENTAMICIN SO4 0.1% TOPICAL OINTMENT 15 GM/TUBE TUBE TP SCH (21:52)
[2025-04-04] MEDS: GABAPENTIN 300 MG CAPSULE PO SCH (21:53)
[2025-04-04] MEDS: DOCUSATE SODIUM 100 MG CAPSULE (FP) PO SCH (21:53)
[2025-04-04] MEDS: TAMSULOSIN HCL 0.4 MG CAP PO SCH (21:53)
[2025-04-04] MEDS: CEFEPIME 1 GM in DEXTROSE 5%-WATER 100 ML IVPB SCH (21:53)
[2025-04-04] MEDS: CHLORHEXIDINE GLUCONATE 4% CLEANSER FOR DECOLONIZATION TP SCH (21:53)
[2025-04-04] MEDS: ROSUVASTATIN CA 10 MG TABLET PO SCH (21:53)
[2025-04-04] MEDS ORDERED: MUPIROCIN 2% TOPICAL OINTMENT FOR DECOLONIZATION NS SCH (22:00)
[2025-04-04] MEDS ORDERED: CHLORHEXIDINE GLUCONATE 4% CLEANSER FOR DECOLONIZATION TP SCH (22:00)
[2025-04-05 07:40] LABS: MCHC 31.8 g/dl (32.3-36.5); MEAN CELL VOLUME 102.6 fl (79.0-92.2); MEAN PLT VOLUME 11.1 fl (9.4-12.4); RDW 12.9 % (12.6-16.6)
[2025-04-05 09:17] LABS: CO2 26.0 mmol/L (21-32); GLUCOSE,RANDOM 107.0 mg/dL (74-106)
[2025-04-05 09:18] LABS: CREATININE 1.4 mg/dL (0.55-1.3); SGPT/ALT 33.0 U/L (13-61)
[2025-04-05 09:20] LABS: SGOT/AST 37.0 U/L (15-37); TOT PROT 6.1 g/dl (6.4-8.2)
[2025-04-05 09:21] LABS: ALK PHOS 56.0 U/L (45-117)
[2025-04-05] MEDS: amLODIPine BESYLATE 5 MG TABLET (FP) PO SCH (09:53)
[2025-04-05] MEDS: APIXABAN 5 MG TABLET PO SCH (09:53)
[2025-04-05] MEDS: ALLOPURINOL 100 MG TABLET (FP) PO SCH (09:53)
[2025-04-05] MEDS: ESCITALOPRAM OXALATE 10 MG TABLET PO SCH (09:53)
[2025-04-05] MEDS ORDERED: ESCITALOPRAM OXALATE 10 MG TABLET PO SCH (10:00)
[2025-04-05] MEDS: SODIUM ZIRCONIUM CYCLOSILICATE (LOKELMA) 5 GM PACKET PO ONE (12:20)
[2025-04-05 12:33] LABS: ABSOLUTE IMMATURE GRANULOCYTES 0.12 x10^3/uL (0.0-0.031); BASOPHILS # 0.02 x10^3/uL (0.01-0.08); EOSINOPHIL % 0.4 % (0.8-7.0); EOSINOPHILS # 0.04 x10^3/uL (0.04-0.54); MEAN PLT VOLUME 10.9 fl (9.4-12.4)
[2025-04-05 12:35] LABS: IMMATURE PLATELET FRACTION # 5.50 x10^3/uL; MCHC 32.2 g/dl (32.3-36.5); MEAN CELL VOLUME 103.4 fl (79.0-92.2); MONOCYTE # 1.00 x10^3/uL (0.30-0.82); MONOCYTE % 9.0 % (5.3-12.2); RDW 12.9 % (12.6-16.6)
[2025-04-05 12:57] LABS: CO2 29.0 mmol/L (21-32); GLUCOSE,RANDOM 147.0 mg/dL (74-106)
[2025-04-05 13:00] LABS: CREATININE 1.5 mg/dL (0.55-1.3); SGPT/ALT 33.0 U/L (13-61)
[2025-04-05 13:01] LABS: SGOT/AST 17.0 U/L (15-37)
[2025-04-05 13:02] LABS: TOT PROT 5.9 g/dl (6.4-8.2)
[2025-04-05 13:03] LABS: ALK PHOS 59.0 U/L (45-117)
[2025-04-05 14:02] VITALS: BMI 27.6
[2025-04-05] MEDS: VANCOMYCIN/WATER FOR INJ (PEG) 1,000 MG/200 ML BAG IVPB SCH (15:40)
[2025-04-05] MEDS: SENNOSIDES 8.6MG TABLET (FP) PO PRN (15:40)
[2025-04-05 17:01] LABS: ABSOLUTE IMMATURE GRANULOCYTES 0.24 x10^3/uL (0.0-0.031); BASOPHILS # 0.03 x10^3/uL (0.01-0.08); EOSINOPHIL % 0.5 % (0.8-7.0); EOSINOPHILS # 0.07 x10^3/uL (0.04-0.54); IMMATURE PLATELET FRACTION # 5.40 x10^3/uL; MCHC 32.2 g/dl (32.3-36.5); MEAN CELL VOLUME 104.6 fl (79.0-92.2); MEAN PLT VOLUME 11.0 fl (9.4-12.4); MONOCYTE # 1.77 x10^3/uL (0.30-0.82); MONOCYTE % 11.5 % (5.3-12.2); RDW 13.2 % (12.6-16.6)
[2025-04-05] MEDS: MELATONIN 5 MG TABLETS PO PRN (21:51)
[2025-04-06 06:43] LABS: MCHC 32.2 g/dl (32.3-36.5); RDW 13.2 % (12.6-16.6)
[2025-04-06 06:45] LABS: IMMATURE PLATELET FRACTION # 6.30 x10^3/uL; MEAN CELL VOLUME 104.7 fl (79.0-92.2); MEAN PLT VOLUME 11.1 fl (9.4-12.4)
[2025-04-06 07:12] LABS: CO2 28.0 mmol/L (21-32); GLUCOSE,RANDOM 109.0 mg/dL (74-106)
[2025-04-06 07:15] LABS: CREATININE 1.6 mg/dL (0.55-1.3); SGOT/AST 25.0 U/L (15-37); SGPT/ALT 36.0 U/L (13-61)
[2025-04-06 07:17] LABS: TOT PROT 6.0 g/dl (6.4-8.2)
[2025-04-06 07:18] LABS: ALK PHOS 61.0 U/L (45-117)
[2025-04-06] MEDS ORDERED: morphine CARPU-JECT 2 MG/1 ML DISP.SYRIN IVPUSH PRN (10:54)
[2025-04-06 14:44] VITALS: BP 131/70; PULSE 88; RESP 18; TEMP 97.5
[2025-04-06] MEDS ORDERED: CEPHALEXIN MONOHYDRATE 500 MG CAPSULE (UD) PO SCH (22:00)
== END 2025-04-06 14:30 | disposition home or self-care (01) | DRG 253 ==
LOC: JER 07:49 → JERBED 08:06 → J4S 20:18 → JICU 04-03 19:43
PROVIDERS: ADMIT Internal Medicine; ATTEND Internal Medicine
PROC: 047T3ZZ Dilation of Right Peroneal Artery, Percutaneous Approach (ICD-10-PCS; principal; 2025-04-04 13:30)
DX: I70.211 Atherosclerosis of native arteries of extremities with intermittent claudication, right leg (principal); L03.115 Cellulitis of right lower limb; I10 Essential (primary) hypertension; E78.5 Hyperlipidemia, unspecified; N40.0 Benign prostatic hyperplasia without lower urinary tract symptoms; M10.9 Gout, unspecified
CPT/HCPCS: 36415; 71045-TC-FY; 73630-TC-RT-FY; 76000-TC-FY; 80048; 80053; 80061; 82272; 83036; 83605; 83735; 84100; 85025; 85027; 85032; 85384; 85610; 85651; 85730; 86140; 86850; 86900; 86901; 87040; 87081; 93005; 93010; 93306-TC; 94760; 99285-25; C1760; C1769; C1887; G0480; J1644; J2997